=== PATIENT | male | born 1955 | race Caucasian/White ===

== ENCOUNTER 2019-01-23 14:56 | Emergency (ER) | payer SELFPAY ==
[~2019-01-23] VITALS: Ht 182.9 cm; Wt 90.9 kg
[2019-01-23 17:18] VITALS: BP 136/81
== END 2019-01-23 17:20 | disposition home or self-care (01) ==
LOC: EMS 14:57
DX: R76.11 Nonspecific reaction to tuberculin skin test without active tuberculosis (principal); F17.210 Nicotine dependence, cigarettes, uncomplicated; F15.90 Other stimulant use, unspecified, uncomplicated; Z86.19 Personal history of other infectious and parasitic diseases
CPT/HCPCS: 99406